=== PATIENT | male | born 1995 | race Caucasian/White ===

== ENCOUNTER 2017-12-29 08:58 | Emergency (ER) | payer SELFPAY ==
[2017-12-29] MEDS ORDERED: LIDOCAINE 1% (MDV) 20 ML INJ SC (10:00)
[2017-12-29] MEDS ORDERED: LIDOCAINE 1% (MPF) 30 ML INJ INJ (10:30)
[2017-12-29] MEDS: LIDOCAINE 1% (MPF) 5 ML VIAL SC (10:55)
[2017-12-29] MEDS: LIDOCAINE 1% (MPF) 30 ML INJ SC (10:55)
== END 2017-12-29 10:56 | disposition home or self-care (01) ==
LOC: FTE 08:58
DX: L02.416 Cutaneous abscess of left lower limb (principal); L02.415 Cutaneous abscess of right lower limb
CPT/HCPCS: 10061; 99283-25

== ENCOUNTER 2017-12-29 13:21 | Observation (INO) | payer SELFPAY ==
[2017-12-29 15:07] LABS: ADD MAN DIFF? NO
[2017-12-29 15:11] LABS: WHITE BLOOD COUNT 6.9 10^3/ul (4.8-10.8)
[2017-12-29 15:11] LABS: BASOPHILS % 0.4 % (0.0-2.0); EOSINOPHILS # 0.2 10^3/ul (0.0-0.5); EOSINOPHILS % 2.3 % (0.0-7.0); HEMATOCRIT 38.5 % (42.0-52.0); LYMPHOCYTES # 1.8 10^3/ul (0.8-2.9); LYMPHOCYTES % 25.6 % (15.0-51.0); MEAN CORPUSCULAR HEMOGLOBIN 25.5 pg (29.0-33.0); MEAN CORPUSCULAR HGB CONC 31.2 g/dl (32.0-37.0); MEAN CORPUSCULAR VOLUME 81.9 fl (82.0-101.0); MEAN PLATELET VOLUME 10.4 fl (7.4-10.4); MONOCYTE # 0.4 10^3/ul (0.3-0.9); MONOCYTES % 6.1 % (0.0-11.0); NEUTROPHIL # 4.5 10^3/ul (1.6-7.5); NEUTROPHILS % 65.2 % (39.0-77.0); PLATELET COUNT 332 10^3/UL (140-415); RED CELL DISTRIBUTION WIDTH 19.2 % (11.5-14.5)
[2017-12-29] MEDS: SOD CHLORIDE 0.9% 1,000 ML IV (15:25)
[2017-12-29] MEDS: PIPER-TAZO 3.375 GM IV (PMX) 100 ML IVPB ×3 (15:26→23:46)
[2017-12-29 15:46] LABS: ALANINE AMINOTRANSFERASE 36 IU/L (13-69); ALBUMIN 3.4 g/dl (3.3-4.9); ALBUMIN/GLOBULIN RATIO 0.85; ALKALINE PHOSPHATASE 70 IU/L (42-121); ANION GAP 14 (8-16); ASPARTATE AMINO TRANSFERASE 25 IU/L (15-46); BILIRUBIN,INDIRECT 0.2 mg/dl (0-1.1); BILIRUBIN,TOTAL 0.2 mg/dl (0.2-1.3); BLOOD UREA NITROGEN 4 mg/dl (7-20); CALCIUM 9.6 mg/dl (8.4-10.2); CARBON DIOXIDE 24 mmol/L (21-31); CHLORIDE 106 mmol/L (97-110); CREATININE 0.73 mg/dl (0.61-1.24); GLUCOSE 119 mg/dl (70-220); POTASSIUM 3.6 mmol/L (3.5-5.1); SODIUM 140 mmol/L (135-144); TOTAL PROTEIN 7.4 g/dl (6.1-8.1)
[2017-12-29] MEDS: VANCOMYCIN 1 GM (PMX) 250 ML IVPB (16:08)
[2017-12-29] MEDS ORDERED: VANCOMYCIN IV PER PHARMACY XX (17:30)
[2017-12-29] MEDS ORDERED: NACL 0.9% 3 ML SYG IV (17:30)
[2017-12-29] MEDS ORDERED: SOD CHLORIDE 0.9% 100 ML (18:00)
[2017-12-29] MEDS ORDERED: IOHEXOL 300MG/ML 150 ML BTL (18:00)
[2017-12-29] MEDS: VANCOMYCIN 1 GM 250 ML IVPB (18:52)
[2017-12-29] MEDS: HYDROCODONE/APAP (5/325) TAB PO ×2 (18:52→23:11)
[2017-12-30] MEDS: VANCOMYCIN 1.25 GM in SOD CHLORIDE 0.9% 250 ML IVPB ×2 (01:35→08:48)
[2017-12-30] MEDS: PIPER-TAZO 3.375 GM IV (PMX) 100 ML IVPB ×2 (05:45→12:15)
[2017-12-30] MEDS: HYDROCODONE/APAP (5/325) TAB PO (05:46)
[2017-12-30 09:09] LABS: ADD MAN DIFF? NO
[2017-12-30 09:12] LABS: BASOPHILS % 0.8 % (0.0-2.0); EOSINOPHILS # 0.2 10^3/ul (0.0-0.5); EOSINOPHILS % 3.7 % (0.0-7.0); HEMATOCRIT 37.6 % (42.0-52.0); HEMOGLOBIN 11.8 g/dl (14.0-18.0); LYMPHOCYTES # 2.2 10^3/ul (0.8-2.9); MEAN CORPUSCULAR HEMOGLOBIN 25.7 pg (29.0-33.0); MEAN CORPUSCULAR HGB CONC 31.4 g/dl (32.0-37.0); MEAN CORPUSCULAR VOLUME 81.9 fl (82.0-101.0); MEAN PLATELET VOLUME 10.1 fl (7.4-10.4); MONOCYTE # 0.5 10^3/ul (0.3-0.9); MONOCYTES % 9.2 % (0.0-11.0); NEUTROPHIL # 1.9 10^3/ul (1.6-7.5); NEUTROPHILS % 39.9 % (39.0-77.0); PLATELET COUNT 326 10^3/UL (140-415); RED BLOOD COUNT 4.59 10^6/ul (4.70-6.10); RED CELL DISTRIBUTION WIDTH 19.7 % (11.5-14.5)
[2017-12-30 09:12] LABS: WHITE BLOOD COUNT 4.9 10^3/ul (4.8-10.8)
[2017-12-30 10:45] LABS: ALANINE AMINOTRANSFERASE 31 IU/L (13-69); ALBUMIN 3.1 g/dl (3.3-4.9); ALBUMIN/GLOBULIN RATIO 0.86; ALKALINE PHOSPHATASE 62 IU/L (42-121); ANION GAP 11 (8-16); ASPARTATE AMINO TRANSFERASE 23 IU/L (15-46); BILIRUBIN,INDIRECT 0.2 mg/dl (0-1.1); BILIRUBIN,TOTAL 0.2 mg/dl (0.2-1.3); BLOOD UREA NITROGEN 8 mg/dl (7-20); CALCIUM 9.3 mg/dl (8.4-10.2); CARBON DIOXIDE 23 mmol/L (21-31); CHLORIDE 110 mmol/L (97-110); CREATININE 0.85 mg/dl (0.61-1.24); GLUCOSE 93 mg/dl (70-220); POTASSIUM 4.1 mmol/L (3.5-5.1); SODIUM 140 mmol/L (135-144); TOTAL PROTEIN 6.7 g/dl (6.1-8.1)
[2017-12-30 11:56] LABS: HEMOGLOBIN A1C 5.1 % (0-5.9)
== END 2017-12-30 14:15 | disposition left against medical advice (07) ==
LOC: FTE 13:21 → PP2 15:32
DX: L02.415 Cutaneous abscess of right lower limb (principal); D64.9 Anemia, unspecified
CPT/HCPCS: 73700; 80053; 83036; 85025; 87070; 93306; 96374; 99285-25; G0378

== ENCOUNTER 2018-08-05 09:45 | Emergency (ER) | payer SELFPAY ==
[2018-08-05] MEDS: DEXAMETHASONE 10 MG/ML 1 ML INJ IM (11:14)
[2018-08-05] MEDS: CYCLOBENZAPRINE 10 MG TAB PO (11:14)
[2018-08-05] MEDS: KETOROLAC 60 MG INJ IM (11:15)
[2018-08-05] MEDS: morphine 10 MG INJ IM (13:02)
== END 2018-08-05 14:13 | disposition left against medical advice (07) ==
LOC: FTE 09:45
DX: M54.41 Lumbago with sciatica, right side (principal); F17.210 Nicotine dependence, cigarettes, uncomplicated
CPT/HCPCS: 72100; 96372; 99284-25